=== PATIENT | female | born 1965 | race Caucasian/White ===

== ENCOUNTER 2018-11-30 16:40 | Emergency (ER) | payer MEDICAID ==
[~2018-11-30] VITALS: Wt 62.0 kg
[2018-11-30] MEDS ORDERED: ONDANSETRON (ODT) 4 MG TAB ODT STA (17:08)
[2018-11-30] MEDS ORDERED: ACETAMINOPHEN 500 MG TAB PO STA (17:08)
[2018-11-30] MEDS ORDERED: KETOROLAC 30 MG INJ IV STA (18:51)
[2018-11-30] MEDS ORDERED: CIPROFLOXACIN 400MG/D5W 200 ML IVPB STA (18:51)
[2018-11-30] MEDS ORDERED: SOD CHLORIDE 0.9% 1,000 ML IV STA (18:51)
[2018-11-30] MEDS ORDERED: HYDR-4011 PO (19:24)
[2018-11-30] MEDS ORDERED: CIPR500T4 PO (19:24)
[2018-11-30] MEDS ORDERED: ONDA8TAB14 PO (19:24)
--- NOTE | 2018-11-30 19:28 | ERD ---
ER Documentation Chief Complaint Chief Complaint bib self, cc: abd. pain and vomiting since morning HPI 52-year-old female presents with epigastric pain and vomiting since this morning. She denies any fevers. She has pain which may radiate to the right upper quadrant as well. Denies dysuria or lower abdominal pain. She denies any known history of gallstones. Denies . ROS All systems reviewed and are negative except as per history of present illness. Medications Home Meds Active Scripts Hydrocodone/Acetaminophen (Gar[place] 5-325 Tablet) 1 Each Tablet, 1 TAB PO Q6H PRN for PAIN, #10 TAB Prov:CARLOS FUNK MD 11/30/18 Ondansetron (Ondansetron Odt) 8 Mg Tab.rapdis, 8 MG PO Q6H PRN for NAUSEA AND/OR VOMITING, #10 TAB Prov:CARLOS FUNK MD 11/30/18 Ciprofloxacin Hcl* (Ciprofloxacin Hcl*) 500 Mg Tablet, 500 MG PO BID for 10 Days, TAB Prov:CARLOS FUNK MD 11/30/18 Allergies Allergies: Coded Allergies: No Known Allergy (Unverified , 11/30/18) FmHx Family History: No diabetes, No coronary disease, No other Physical Exam Vitals Vital Signs Date Temp Pulse Resp B/P (MAP) Pulse Ox O2 O2 Flow FiO2 Time Delivery Rate 11/30/18 98.1 97 19 165/82 100 16:43 (109) Physical Exam Const: No acute distress Head: Atraumatic Eyes: Normal Conjunctiva ENT: Normal External Ears, Nose and Mouth. Neck: Full range of motion. No meningismus. Resp: Clear to auscultation bilaterally Cardio: Regular rate and rhythm, no murmurs Abd: Soft, tenderness mostly in epigastric area mild right upper quadrant. No tenderness McBurney's point. No rebound. Non distended. Normal bowel sounds Skin: No petechiae or rashes Back: No midline or flank tenderness Ext: No cyanosis, or edema Neur: Awake and alert Psych: Normal Mood and Affect Result Diagram: 11/30/18 1729 11/30/18 1729 Results 24 hrs Laboratory Tests Test 11/30/18 17:29 11/30/18 17:35 White Blood Count 15.6 10^3/ul Red Blood Count 5.11 10^6/ul Hemoglobin 15.2 g/dl Hematocrit 44.5 % Mean Corpuscular Volume 87.1 fl Mean Corpuscular Hemoglobin 29.7 pg Mean Corpuscular Hemoglobin Concent 34.2 g/dl Red Cell Distribution Width 12.1 % Platelet Count 290 10^3/UL Mean Platelet Volume 9.2 fl Immature Granulocytes % 0.400 % Neutrophils % 90.9 % Lymphocytes % 6.0 % Monocytes % 2.5 % Eosinophils % 0.0 % Basophils % 0.2 % Nucleated Red Blood Cells % 0.0 /100WBC Immature Granulocytes # 0.060 10^3/ul Neutrophils # 14.2 10^3/ul Lymphocytes # 0.9 10^3/ul Monocytes # 0.4 10^3/ul Eosinophils # 0.0 10^3/ul Basophils # 0.0 10^3/ul Nucleated Red Blood Cells # 0.0 10^3/ul Urine Color YELLOW Urine Clarity SLIGHTLY CLOUDY Urine pH 6.0 Urine Specific [place] 1.024 Urine Ketones 1+ mg/dL Urine Nitrite NEGATIVE mg/dL Urine Bilirubin NEGATIVE mg/dL Urine Urobilinogen NEGATIVE mg/dL Urine Leukocyte Esterase NEGATIVE Ronda/ul Urine Microscopic RBC 29 /HPF Urine Microscopic WBC 8 /HPF Urine Squamous Epithelial Cells MODERATE /HPF Urine Bacteria FEW /HPF Urine Mucus FEW /HPF Urine Hemoglobin 3+ mg/dL Urine Glucose 1+ mg/dL Urine Total Protein 1+ mg/dl Sodium Level 139 mmol/L Potassium Level 3.7 mmol/L Chloride Level 101 mmol/L Carbon Dioxide Level 25 mmol/L Anion Gap 13 Blood Urea Nitrogen 14 mg/dl Creatinine 0.53 mg/dl Est Glomerular Filtrat Rate mL/min > 60 mL/min Glucose Level 166 mg/dl Calcium Level 9.4 mg/dl Total Bilirubin 1.2 mg/dl Direct Bilirubin 0.00 mg/dl Indirect Bilirubin 1.2 mg/dl Aspartate Amino Transf (AST/SGOT) 29 IU/L Alanine Aminotransferase (ALT/SGPT) 16 IU/L Alkaline Phosphatase 99 IU/L Total Protein 8.4 g/dl Albumin 4.9 g/dl Globulin 3.50 g/dl Albumin/Globulin Ratio 1.40 Lipase 17 U/L POC Beta HCG, Qualitative NEGATIVE Current Medications Medications Dose Sig/Bala Start Time Status Last (Trade) Ordered Route PRN Stop Time Admin Dose Reason Admin Ondansetron 8 mg ONCE STAT 11/30/18 DC 11/30/18 HCl (Zofran ODT 17:08 17:25 Odt) 11/30/18 17:10 500 mg ONCE STAT 11/30/18 DC 11/30/18 Acetaminophen PO 17:08 17:25 (Tylenol 11/30/18 17:10 Tab) Sodium 1,000 ml @ Q1H STAT 11/30/18 11/30/18 Chloride 1,000 mls/hr IV 18:51 19:04 11/30/18 19:50 Ketorolac 30 mg ONCE STAT 11/30/18 DC 11/30/18 Tromethamine IV 18:51 19:05 (Toradol) 11/30/18 18:52 200 ml @ ONCE STAT 11/30/18 11/30/18 Ciprofloxacin 200 mls/hr IVPB 18:51 19:11 / Dextrose 11/30/18 19:50 Procedures/MDM Patient presents with epigastric pain and vomiting since this morning. CBC shows white blood cell count of 15. CMP shows no significant abnormalities. Urine shows no significant signs of infection. She does have hemoglobin and 1+ ketones. HCG is negative. Lipase is normal. Right upper quadrant ultrasound shows contracted gallbladder with sludge and stones. There is some possible thickening of the gallbladder wall. Patient's pain was relieved with Zofran and Tylenol. Patient was given Cipro 400 mg IV and 1 L normal saline IV as well as Toradol 30 mg IV. Is with right upper quadrant or epigastric pain with vomiting since this morning relieved with conservative treatment. Is uncertain if ultrasound represents true cholecystitis or contracted gallbladder. Patient is well-appearing should be amenable to outpatient treatment given short duration of symptoms and no fever and resolved symptoms. Patient is a reassuring abdominal exam on serial exam. CBC may be stress response given short duration of symptoms and vomiting. Will treat with short course of [place], Cipro, Zofran, instructions for general surgery evaluation and primary care follow-up. She is advised to return for fevers, vomiting, worsening pain, new worsening symptoms. The patient was stable with no new complaints during the ER course. Clinically, there is no current evidence to suggest meningitis, sepsis, acute abdomen, pneumonia, stroke, acute coronary syndrome, pulmonary embolism, aortic dissection or any other emergent condition appearing to require further evaluation or hospitalization. Patient counseled regarding my diagnostic impression and care plan. Prior to discharge all questions answered. Pt agrees with treatment plan and understands strict return precautions. Pt is instructed to follow up with primary care provider within 24-48 hours. Precautionary instructions provided including instructions to return to the ER if not improving or for any worsening or changing symptoms or concerns. Departure Diagnosis: Primary Impression: Abdominal pain Abdominal location: right upper quadrant Qualified Codes: R10.11 - Right upper quadrant pain Condition: Stable Patient Instructions: Abdominal Pain, Gallstones, Cholecystitis, Presumed Referrals: NO PRIMARY,CARE PHYSICIAN (PCP) Miguelina LONG SAMUEL MD KOSARI, KAMBIZ M.D. LOMIS, THOMAS MD Additional Instructions: Va al degroot doctor/ specialista para mas evaluacon en el proximo semana. posiblemente necesita autorizado de degroot doctor primario para specialista. Regresa para fiebre, o mas o nueva simptomas- fiebre, vomito, mas dolor. CARLOS FUNK MD Nov 30, 2018 19:28
[2018-11-30 19:43] VITALS: BP 151/81; PULSE 105; RESP 16
== END 2018-11-30 20:25 | disposition home or self-care (01) ==
LOC: FTE 16:40
DX: R10.11 Right upper quadrant pain (principal); R11.10 Vomiting, unspecified
CPT/HCPCS: 36415; 76705; 80053; 81001; 81025; 83690; 85025; 96365; 96375; J0744; J1885; J7030; Z7502; Z7610